=== PATIENT | male | born 1990 | race African-American/Black ===

== ENCOUNTER 2023-02-13 13:51 | Emergency (ER) | payer BC ==
[2023-02-13 14:07] VITALS: BP 127/87; PULSE 112; RESP 18; TEMP 102.9; BMI 32.5
== END 2023-02-13 15:20 | disposition home or self-care (01) ==
LOC: JERFT 13:51
DX: U07.1 COVID-19 (principal); R05.1 Acute cough
CPT/HCPCS: 71046-TC-FY; 99283-25